=== PATIENT | female | born 1995 | race Two or more races ===

== ENCOUNTER 2018-10-12 10:42 | Emergency (ER) | payer BC ==
[~2018-10-12] VITALS: Ht 152.4 cm; Wt 56.2 kg
[2018-10-12 10:55] VITALS: BP 132/78
--- NOTE | 2018-10-12 11:03 | NUR ---
Patient discharged to home in stable condition. Written and verbal after care instructions given. Patient verbalizes understanding of instruction.
== END 2018-10-12 11:02 | disposition home or self-care (01) ==
LOC: ER 10:42
DX: J02.9 Acute pharyngitis, unspecified (principal)